=== PATIENT | male | born 1945 | race Caucasian/White ===

== ENCOUNTER → 2020-02-09 | Outpatient (CLI) | payer MEDICARE ==
[~2020-02-09] MED LIST: CALC-534 PO; LEVO300T4 PO; PSYL3.4P5 PO; TAMS-11 PO; Testosterone INJ
[2020-02-09 16:15] LABS: BASOPHILS # (AUTO) 0.02 x10^3/uL (0-0.1); BASOPHILS % (AUTO) 0 % (0-1); EOSINOPHILS # (AUTO) 0.11 x10^3/uL (0-0.4); EOSINOPHILS % (AUTO) 2 % (1-7); LYMPHOCYTES # (AUTO) 1.65 x10^3/uL (1-3.4); LYMPHOCYTES % (AUTO) 27 % (22-44); MD NO; MEAN CORPUSCULAR HEMOGLOBIN 33.7 pg (27.5-34.5); MEAN CORPUSCULAR HGB CONC 33.4 g/dL (33.2-36.2); MONOCYTES # (AUTO) 0.45 x10^3/uL (0.2-0.8); MONOCYTES % (AUTO) 7 % (2-9); NEUTROPHILS # (AUTO) 3.99 x10^3/uL (1.8-6.8); NEUTROPHILS % (AUTO) 64 % (42-75); PLATELET COUNT 187 x10^3/uL (130-400); RED BLOOD COUNT 4.55 x10^6/uL (4.38-5.82); RED CELL DISTRIBUTION WIDTH 13.9 % (9.4-14.8)
[2020-02-09 16:24] LABS: ANION GAP 4 mmol/L (5-15); CALCIUM 8.5 mg/dL (8.5-10.1); CHLORIDE 109 mmol/L (98-107); CREATININE 1.15 mg/dL (0.7-1.3)
== END | disposition home or self-care (01) ==
LOC: STAR 14:57
PROVIDERS: ATTEND Orthopaedic Surgery
DX: Z01.818 Encounter for other preprocedural examination (principal); M17.11 Unilateral primary osteoarthritis, right knee; I21.19 ST elevation (STEMI) myocardial infarction involving other coronary artery of inferior wall
CPT/HCPCS: 36415; 80048; 85025; 87081; 93005

== ENCOUNTER → 2020-02-15 | Outpatient (CLI) | payer MEDICARE | END | disposition home or self-care (01) | LOC: STAR 08:52 | PROVIDERS: ATTEND Anesthesiology | DX: Z01.818 Encounter for other preprocedural examination (principal); Z11.59 Encounter for screening for other viral diseases | CPT/HCPCS: 36415; 87635 ==

== ENCOUNTER 2020-02-19 07:22 | Observation (INO) | payer MEDICARE ==
[~2020-02-19] VITALS: Ht 175.3 cm; Wt 79.4 kg
[~2020-02-19 07:22] MED LIST changes: +EPINEPHRINE 1 MG/ML, 1ML ONE; +KETOROLAC 60 MG/2 ML ONE; +ROPIvacaine/PF 0.2%, 20 ML ONE; +SODIUM CHLORIDE 0.9% 50 ML ONE; +TRANEXAMIC ACID 100 MG/ML, 10ML ONE
[2020-02-19] MEDS ORDERED: LACTATED RINGERS 1,000 ML IV SCH (07:48)
[2020-02-19] MEDS ORDERED: TRAM50TA2 PO (08:00)
[2020-02-19] MEDS ORDERED: ANAS1TAB49 PO (08:00)
[2020-02-19] MEDS ORDERED: FLAX1OIL PO (08:00)
[2020-02-19] MEDS ORDERED: FOLI-17 PO (08:00)
[2020-02-19] MEDS ORDERED: CHLORHEXIDINE 15 ML UDC MM ONE (08:00)
[2020-02-19] MEDS ORDERED: GLUC1CAP13 PO (08:00)
[2020-02-19] MEDS ORDERED: SELE200T10 PO (08:00)
[2020-02-19] MEDS ORDERED: VITA1TAB38 PO (08:00)
[2020-02-19] MEDS ORDERED: ACET-1600 PO (08:00)
[2020-02-19] MEDS ORDERED: THYR130T2 PO (08:00)
[2020-02-19] MEDS ORDERED: ACET500C7 PO (08:00)
[2020-02-19] MEDS ORDERED: DICL100G25 TP (08:00)
[2020-02-19] MEDS ORDERED: CYAN50002 PO (08:00)
[2020-02-19] MEDS ORDERED: MILK175C5 PO (08:00)
[2020-02-19] MEDS ORDERED: ELDERBERRY EXTRACT PO (08:00)
[2020-02-19] MEDS ORDERED: PYRI100T9 PO (08:00)
[2020-02-19] MEDS ORDERED: CHRO1TAB7 PO (08:00)
[2020-02-19] MEDS ORDERED: OMEG1CAP39 PO (08:00)
[2020-02-19] MEDS ORDERED: UBID100C41 PO (08:00)
[2020-02-19] MEDS ORDERED: SAW1CAPS6 PO (08:00)
[2020-02-19] MEDS ORDERED: [UNRECOGNIZED DRUG - OTHER] PO (08:00)
[2020-02-19] MEDS ORDERED: MIDAZOLAM 1 MG/ML, 5ML ONE (09:01)
[2020-02-19] MEDS ORDERED: CEFAZOLIN PMX 1GM/50ML ONE (09:01)
[2020-02-19] MEDS ORDERED: ONDANSETRON 2MG/ML, 2ML ONE (09:01)
[2020-02-19] MEDS ORDERED: PROPOFOL 10 MG/ML, 100ML IV ONE (09:01)
[2020-02-19] MEDS ORDERED: DEXAMETHASONE 4 MG/ML, 1ML ONE (09:01)
[2020-02-19] MEDS ORDERED: TRANEXAMIC ACID 100 MG/ML, 10ML ONE (09:01)
[2020-02-19] MEDS ORDERED: FENTANYL PF 250 MCG/5ML ONE (09:01)
[2020-02-19] MEDS ORDERED: OXYcodone IR 5MG TABLET PO PRN ×2 (10:30)
[2020-02-19] MEDS ORDERED: PSYLLIUM PACKET PO PRN (10:30)
[2020-02-19] MEDS ORDERED: ALUMINUM/MAG/SIMETHICONE 30 ML UDC PO PRN (10:30)
[2020-02-19] MEDS ORDERED: PROMETHAZINE 12.5 MG SUPP PR PRN (10:30)
[2020-02-19] MEDS ORDERED: BISACODYL 10 MG SUPP PR PRN (10:30)
[2020-02-19] MEDS ORDERED: MAGNESIUM HYDROXIDE 8%, 30ML UDC PO PRN (10:30)
[2020-02-19] MEDS ORDERED: PROMETHAZINE 25 MG/ML, 1ML IM PRN (10:30)
[2020-02-19] MEDS ORDERED: ONDANSETRON 4 MG TABLET PO PRN (10:30)
[2020-02-19] MEDS ORDERED: TRANEXAMIC ACID 1,000 MG in SODIUM CHLORIDE 0.9% 100 ML IVPB ONE (10:30)
[2020-02-19] MEDS ORDERED: DIAZEPAM 5 MG TABLET PO PRN (10:30)
[2020-02-19] MEDS ORDERED: CEFAZOLIN PMX 1GM/50ML 50 ML IVPB SCH (10:30)
[2020-02-19] MEDS ORDERED: DIPHENHYDRAMINE 50 MG/ML, 1ML IVPush PRN (10:30)
[2020-02-19] MEDS ORDERED: SENNA/DOCUSATE TABLET PO PRN (10:30)
[2020-02-19] MEDS ORDERED: HYDROmorphone 1 MG/ML, 1ML INJ IVPush PRN (10:30)
[2020-02-19] MEDS ORDERED: POLYETHYLENE GLYCOL 17 GM PACKET PO PRN (10:30)
[2020-02-19] MEDS ORDERED: DIPHENHYDRAMINE 50 MG CAPSULE PO PRN (10:30)
[2020-02-19] MEDS ORDERED: FENTANYL PF 100 MCG/2ML ONE (10:38)
[2020-02-19] MEDS ORDERED: HYDROmorphone 1 MG/ML, 1ML INJ ONE (10:38)
[2020-02-19] MEDS ORDERED: LORazepam 2 MG/ML, 1ML ONE (10:38)
[2020-02-19] MEDS: FENTANYL PF 100 MCG/2ML IV PRN ×2 (10:43→10:55)
[2020-02-19] MEDS: LORazepam 2 MG/ML, 1ML IVPush PRN ×2 (10:46→11:17)
[2020-02-19] MEDS ORDERED: OXYcodone 5 MG/5 ML ORAL.SOL UDC PO PRN (11:00)
[2020-02-19] MEDS ORDERED: PROMETHAZINE 25 MG/ML, 1ML IVPush PRN (11:00)
[2020-02-19] MEDS ORDERED: MEPERIDINE/PF 25MG/0.5ML IVPush PRN (11:00)
[2020-02-19] MEDS ORDERED: ACETAMINOPHEN 325 MG TABLET PO PRN (11:00)
[2020-02-19] MEDS ORDERED: ALBUTEROL SULFATE 2.5 MG/3 ML NPPB PRN (11:00)
[2020-02-19] MEDS ORDERED: LABETALOL 5MG/ML, 20ML IV PRN (11:00)
[2020-02-19] MEDS ORDERED: hydrALAzine 20 MG/ML, 1ML IV PRN (11:00)
[2020-02-19] MEDS: HYDROmorphone 1 MG/ML, 1ML INJ IVPush PRN ×2 (11:05→11:25)
[2020-02-19 11:55] VITALS: BP 148/67
[2020-02-19] MEDS: SODIUM CHLORIDE 0.9% 1,000 ML IV SCH ×2 (12:29→17:30)
[2020-02-19] MEDS: ACETAMINOPHEN 500 MG TABLET PO SCH ×2 (12:33→17:29)
[2020-02-19] MEDS: KETOROLAC 30 MG/1 ML IV SCH ×2 (12:33→20:28)
[2020-02-19 13:00] VITALS: BP 143/71
[2020-02-19] MEDS: CEFAZOLIN PMX 1GM/50ML 50 ML IVPB SCH (17:30)
[2020-02-19 19:24] VITALS: BP 143/71
[2020-02-19] MEDS: DOCUSATE 100 MG CAPSULE PO SCH (20:28)
[2020-02-19] MEDS: ASPIRIN 81 MG TABLET EC PO SCH (20:28)
[2020-02-19 23:48] VITALS: BP 106/50
[2020-02-20] MEDS: CEFAZOLIN PMX 1GM/50ML 50 ML IVPB SCH (01:05)
[2020-02-20] MEDS: ACETAMINOPHEN 500 MG TABLET PO SCH ×2 (01:05→09:02)
[2020-02-20 03:47] VITALS: BP 121/62
[2020-02-20] MEDS: KETOROLAC 30 MG/1 ML IV SCH (05:26)
[2020-02-20] MEDS ORDERED: DEXAMETHASONE 4 MG/ML, 1ML IVPush SCH (06:00)
[2020-02-20] MEDS ORDERED: LEVOTHYROXINE 150 MCG TABLET PO SCH (06:00)
[2020-02-20 07:18] VITALS: BP 149/66
[2020-02-20] MEDS ORDERED: MULTIVITAMINS/MINERALS TABLET PO SCH (09:00)
[2020-02-20] MEDS ORDERED: TAMSULOSIN 0.4 MG CAP.ER.24H PO SCH (09:00)
[2020-02-20] MEDS: ASPIRIN 81 MG TABLET EC PO SCH (09:02)
[2020-02-20] MEDS: DOCUSATE 100 MG CAPSULE PO SCH (09:02)
== END 2020-02-20 10:54 | disposition home or self-care (01) ==
LOC: OUT 07:22 → ORIP 10:28 → 4NE 11:53 → DCLOUNGE 02-20 10:45
PROVIDERS: ADMIT Orthopaedic Surgery; ATTEND Orthopaedic Surgery
DX: M17.11 Unilateral primary osteoarthritis, right knee (principal); E03.9 Hypothyroidism, unspecified; N40.0 Benign prostatic hyperplasia without lower urinary tract symptoms; Z79.899 Other long term (current) drug therapy; Z96.651 Presence of right artificial knee joint
CPT/HCPCS: 27447; 36415; 73560; 85014; 85018; 96365; 96366; 96375; 96376; 97161; 97165; C1713; C1776; G0378; J0171; J0690; J1100; J1170; J1885; J2060; J2250; J2405; J2704; J2795; J3010; J3490; J7030; J7120

== ENCOUNTER → 2020-06-06 | Outpatient (CLI) | payer MEDICARE ==
[~2020-06-06] MED LIST changes: +ACET-1600 PO; +ACET500C7 PO; +ANAS1TAB49 PO; +CHRO1TAB7 PO; +CYAN50002 PO; +DICL100G25 TP; +ELDERBERRY EXTRACT PO; -EPINEPHRINE 1 MG/ML, 1ML ONE; +FLAX1OIL PO; +FOLI-17 PO; +GLUC1CAP13 PO; -KETOROLAC 60 MG/2 ML ONE; +MILK175C5 PO; +OMEG1CAP39 PO; +PYRI100T9 PO; -ROPIvacaine/PF 0.2%, 20 ML ONE; +SAW1CAPS6 PO; +SELE200T10 PO; -SODIUM CHLORIDE 0.9% 50 ML ONE; +THYR130T2 PO; +TRAM50TA2 PO; -TRANEXAMIC ACID 100 MG/ML, 10ML ONE; +UBID100C41 PO; +VITA1TAB38 PO; +[UNRECOGNIZED DRUG - OTHER] PO
== END | disposition home or self-care (01) ==
LOC: CFH 15:13
PROVIDERS: ATTEND Family Medicine
DX: R59.0 Localized enlarged lymph nodes (principal)
CPT/HCPCS: 76857